=== PATIENT | male | born 2000 | race Caucasian/White ===

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

== ENCOUNTER 2021-01-29 01:30 | Emergency (ER) | payer BC ==
[~2021-01-29] VITALS: Ht 190.5 cm; Wt 77.1 kg
[~2021-01-29 01:30] MED LIST changes: +ADDERALL XR 2020 MG PO; +AMPHETAMINE S12.5 MG PO; +LORCET 5-325 M1 EACH PO
[2021-01-29 03:45] VITALS: BP 104/54
--- NOTE | 2021-01-29 12:22 | EKG ---
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 Requested By: Maria Ines De La Cruz Order Number: [id number] MD: Andrei Harrington Measurements Intervals [place] Rate: 83 P: 61 ME: 122 QRS: 54 QRSD: 110 T: 29 QT: 343 QTc: 403 Interpretive Statements Sinus rhythm ST elev, probable normal early repol pattern Compared to ECG 07/05/2012 17:35:41 ST (T wave) deviation now present Electronically Signed On 01-29-2021 12:21:51 CDT by Andrei Harrington [email or web address] <ELECTRONICALLY SIGNED> By: Andrei Harrington MD, FAC 01/29/21 1221 0237 0237 Andrei aHrrington MD, [facility] /EPI
== END 2021-01-29 03:45 | disposition home or self-care (01) ==
LOC: M.ERS 01:30
DX: J06.9 Acute upper respiratory infection, unspecified (principal); R42 Dizziness and giddiness; Z79.899 Other long term (current) drug therapy; Z20.822 Contact with and (suspected) exposure to COVID-19

== ENCOUNTER 2021-02-01 18:39 | Emergency (ER) | payer BC ==
[~2021-02-01] VITALS: Ht 190.5 cm; Wt 77.1 kg
[2021-02-01] MEDS ORDERED: PROMETHAZINE-D473 M1 PO (19:33)
[2021-02-01] MEDS ORDERED: AZITHROMYCIN 2250 MG PO (19:33)
[2021-02-01] MEDS ORDERED: PREDNISONE 20 M20 MG PO (19:33)
[2021-02-01 19:41] VITALS: BP 127/73
--- NOTE | 2021-02-04 17:28 | EKG ---
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: : 2000 Requested By: Rajwinder Mendez Order Number: [id number] MD: Luis Fitzgerald Measurements Intervals [place] Rate: 93 P: 87 OR: 128 QRS: 75 QRSD: 106 T: 47 QT: 323 QTc: 402 Interpretive Statements Sinus rhythm Minor IVCD of the right type Compared to ECG 01/29/2021 02:37:29 ST (T wave) deviation no longer present Electronically Signed On 02-04-2021 17:28:00 CDT by Luis Fitzgerald [email or web address] <ELECTRONICALLY SIGNED> By: Luis Fitzgerald MD, FAC 02/04/21 1728 1850 1850 Luis Fitzgerald MD, [facility] /EPI
== END 2021-02-01 19:42 | disposition home or self-care (01) ==
LOC: M.ERS 18:39
DX: J18.9 Pneumonia, unspecified organism (principal)